=== PATIENT | female | born 1995 | race Caucasian/White ===

== ENCOUNTER 2021-02-12 22:32 | Emergency (ER) | payer MEDICAID ==
[~2021-02-12] VITALS: Ht 154.9 cm; Wt 60.0 kg
[2021-02-12 22:38] VITALS: TEMP 98
[2021-02-13] MEDS ORDERED: FLONASEALLERGY NS (00:14)
[2021-02-13 00:38] VITALS: BP 114/75; PULSE 98
== END 2021-02-13 00:38 | disposition home or self-care (01) ==
LOC: COL.ER 22:32
DX: R51.9 Headache, unspecified (principal); R09.81 Nasal congestion; H93.13 Tinnitus, bilateral; J34.89 Other specified disorders of nose and nasal sinuses
CPT/HCPCS: J1100; J1200; J1885; J2765; J7030

== ENCOUNTER 2021-08-30 23:46 | Emergency (ER) | payer MEDICAID ==
[~2021-08-30] VITALS: Ht 160 cm; Wt 59.1 kg
[~2021-08-30 23:46] MED LIST: FLONASEALLERGY NS
[2021-08-31] VITALS: TEMP 97.4
[2021-08-31 00:29] LABS: BASO # 0.1 K/mm3 (0.0-0.2); BASO % 0.8 % (0.0-2.0); EOS # 0.1 K/mm3 (0.0-0.7); EOS % 1.3 % (0.0-4.0); GRAN # 5.2 K/mm3 (1.4-6.5); GRAN % 60.5 % (42.2-75.2); HEMATOCRIT 39.2 % (37.0-47.0); HEMOGLOBIN 12.8 g/dl (12.5-16.0); LYMPH # 2.4 K/mm3 (1.2-3.4); MEAN CELL VOLUME 85 fl (80.0-100.0); MEAN CORPUSCULAR HEMOGLOBIN 28 pg (27-31); MEAN CORPUSCULAR HGB CONC 33 g/dl (33.0-37.0); MEAN PLATELET VOLUME 9.8 fl (7.4-10.4); MONO # 0.8 K/mm3 (0.1-0.6); MONO % 9.2 % (1.7-9.3); PLATELET COUNT 342 K/mm3 (130-400); RED BLOOD COUNT 4.63 M/mm3 (4.10-5.30); REDCELL DISTRIBUTION WIDTH-CV 14.5 % (11.5-14.5)
[2021-08-31 00:38] LABS: COLLECTION METHOD CLEAN CATCH
[2021-08-31 00:45] LABS: ALBUMIN 4.6 gm/dL (3.5-5.0); BILIRUBIN,TOTAL 0.3 mg/dL (0.2-1.2); CALCIUM 9.5 mg/dL (8.4-10.2); CREATININE, serum 0.68 mg/dL (0.57-1.11); POTASSIUM 3.8 mmol/L (3.5-4.5); TOTAL PROTEIN 7.7 gm/dL (6.2-8.1)
[2021-08-31 00:46] LABS: PH 6 (5-8); SQUAMOUS EPITHELIAL 0-2 /hpf (0-10); URINE APPEARANCE Clear (CLEAR/HAZY); URINE BACTERIA None Seen /hpf (NONE SEEN); URINE BILIRUBIN Negative (NEGATIVE); URINE BLOOD Negative (NEGATIVE); URINE COLOR Straw (YELLOW); URINE GLUCOSE Negative (NEGATIVE); URINE KETONE Negative (NEGATIVE); URINE LEUKOCYTE ESTERASE Negative (NEGATIVE); URINE NITRATE Negative (NEGATIVE); URINE PROTEIN(semi-quant) Negative (NEGATIVE); URINE RBC 0-2 /hpf (0-2); URINE UROBILINOGEN Negative (NEGATIVE)
[2021-08-31 01:59] VITALS: BP 121/74; PULSE 82
== END 2021-08-31 01:58 | disposition home or self-care (01) ==
LOC: COL.ER 23:46
PROVIDERS: Emergency Medicine
DX: R05.9 Cough, unspecified (principal)
CPT/HCPCS: J2270; Q9967

== ENCOUNTER 2021-09-05 17:52 | Emergency (ER) | payer MEDICAID ==
[2021-09-05 18:12] VITALS: TEMP 98.3
[2021-09-05] MEDS ORDERED: ULTRAM 50MG TAB50 MG PO (19:25)
[2021-09-05 19:43] VITALS: BP 120/84; PULSE 95
== END 2021-09-05 19:43 | disposition home or self-care (01) ==
LOC: COL.ER 17:52
DX: N83.201 Unspecified ovarian cyst, right side (principal)

== ENCOUNTER 2022-01-24 20:42 | Emergency (ER) | payer MEDICAID ==
[~2022-01-24] VITALS: Ht 154.9 cm; Wt 63.2 kg
[~2022-01-24 20:42] MED LIST changes: +ULTRAM 50MG TAB50 MG PO
[2022-01-24 20:56] VITALS: TEMP 98.2
[2022-01-24 21:51] LABS: COLLECTION METHOD CLEAN CATCH
[2022-01-24 22:01] LABS: BASO # 0.1 K/mm3 (0.0-0.2); BASO % 0.5 % (0.0-2.0); EOS # 0.1 K/mm3 (0.0-0.7); EOS % 0.4 % (0.0-4.0); GRAN # 8.3 K/mm3 (1.4-6.5); GRAN % 70.4 % (42.2-75.2); HEMOGLOBIN 12.5 g/dl (12.5-16.0); LYMPH # 2.3 K/mm3 (1.2-3.4); LYMPH % 19.6 % (20.0-51.0); MEAN CELL VOLUME 89 fl (80.0-100.0); MEAN CORPUSCULAR HEMOGLOBIN 30 pg (27-31); MEAN CORPUSCULAR HGB CONC 34 g/dl (33.0-37.0); MEAN PLATELET VOLUME 10.2 fl (7.4-10.4); MONO % 8.8 % (1.7-9.3); PLATELET COUNT 316 K/mm3 (130-400); RED BLOOD COUNT 4.17 M/mm3 (4.10-5.30); REDCELL DISTRIBUTION WIDTH-CV 15.1 % (11.5-14.5)
[2022-01-24 22:15] LABS: MUCOUS Present (NOT PRESENT); PH 5 (5-8); URINE APPEARANCE Hazy (CLEAR/HAZY); URINE BACTERIA None Seen /hpf (NONE SEEN); URINE BILIRUBIN Negative (NEGATIVE); URINE BLOOD Negative (NEGATIVE); URINE COLOR Yellow (YELLOW); URINE GLUCOSE Negative (NEGATIVE); URINE KETONE 2+ (NEGATIVE); URINE LEUKOCYTE ESTERASE Negative (NEGATIVE); URINE NITRATE Negative (NEGATIVE); URINE PROTEIN(semi-quant) 1+ (NEGATIVE); URINE RBC 0-2 /hpf (0-2); URINE UROBILINOGEN Negative (NEGATIVE)
[2022-01-24 22:20] LABS: ALBUMIN 4.1 gm/dL (3.5-5.0); BILIRUBIN,TOTAL 0.4 mg/dL (0.2-1.2); CALCIUM 9.5 mg/dL (8.4-10.2); CREATININE, serum 0.69 mg/dL (0.57-1.11); TOTAL PROTEIN 7.6 gm/dL (6.2-8.1)
[2022-01-24 22:23] LABS: POTASSIUM 2.9 mmol/L (3.5-4.5)
[2022-01-24 23:40] VITALS: BP 116/74; PULSE 73
[2022-01-25] MEDS ORDERED: FLAGYL500 MG PO (03:53)
[2022-01-25] MEDS ORDERED: DOXYCYCLINE HY100 MG PO (03:53)
== END 2022-01-24 23:40 | disposition home or self-care (01) ==
LOC: COL.ER 20:42
PROVIDERS: Physician Assistant
DX: A56.02 Chlamydial vulvovaginitis (principal); A54.02 Gonococcal vulvovaginitis, unspecified; Z87.42 Personal history of other diseases of the female genital tract; Z88.0 Allergy status to penicillin; Z32.02 Encounter for pregnancy test, result negative; Z28.310 Unvaccinated for COVID-19
CPT/HCPCS: J1885

== ENCOUNTER 2022-01-30 11:12 | Emergency (ER) | payer MEDICAID ==
[~2022-01-30 11:12] MED LIST changes: +DOXYCYCLINE HY100 MG PO; +FLAGYL500 MG PO
[2022-02-03] MEDS ORDERED: SUPRAX400 MG PO (13:03)
== END 2022-01-30 11:41 | disposition left against medical advice (07) ==
LOC: COL.ER 11:12
DX: R69 Illness, unspecified (principal)